=== PATIENT | female | born 1960 | race Caucasian/White ===

== ENCOUNTER 2023-05-17 08:03 | Outpatient (CLI) | payer OTHER ==
[~2023-05-17] VITALS: Ht 160 cm; Wt 62.6 kg
[2023-05-17] VITALS (12 sets, daily range): BP systolic 97–127; BP diastolic 51–69; PULSE 54–62; TEMP 97.8
[~2023-05-17 08:03] MED LIST: HYZAAR 50-12.1 UDTAB PO; ISTALOL 2.5 ML2.5 ML OU; K-DUR20 MEQ PO; MULTIPLE VITAMI1 CAP PO; OMEGA-31 SGL; PHARMASSURE ZIN50 MG PO; PRILOSEC 20MG20 MG PO; PROZAC40 MG PO; TURMERIC500 MG PO; VITAMIN D3400 I1 PO; VITAMINC1000TA PO; XALATAN EYE DROPS OU
--- NOTE | 2023-05-17 09:55 | NUR ---
Pt to ct per ambulation. Pt placed on CT table in prone position. Monitors applied and O2 on at 2l/nc.
[2023-05-17] MEDS ORDERED: Midazolam 2 MG/2 ML VIAL IV SCH (10:05)
[2023-05-17] MEDS ORDERED: fentaNYL 50 MCG/ML 2 ML VIAL IV SCH (10:05)
--- NOTE | 2023-05-17 10:14 | NUR ---
Specimens obtained by Dr Richardson and placed in formalin. Specimen labeled.
--- NOTE | 2023-05-17 12:14 | NUR ---
pt tolerated recovery period well. vs remained within normal limits. pt's biopsy site remained clean dry and intact upon discharge. pt's IV discontinued and pt assisted to main lobby via wheelchair. pt verbalized understanding of discharge instructions and was free from acute concerns and complaints upon discharge.
== END 2023-05-17 12:34 | disposition home or self-care (01) ==
LOC: COL.RAD 08:03
DX: R91.8 Other nonspecific abnormal finding of lung field (principal)
CPT/HCPCS: J2250; J3010